=== PATIENT | female | born 1980 | race Caucasian/White ===

== ENCOUNTER → 2016-11-26 | Outpatient (CLI) | payer MEDICAID | END | disposition home or self-care (01) | LOC: LABWHC1 07:31 | PROVIDERS: ATTEND Clinical Nurse Specialist Women's Health | DX: R53.83 Other fatigue (principal) | CPT/HCPCS: 36415; 82306; 82607; 84436; 84443; 84481; 86376 ==

== ENCOUNTER → 2017-03-19 | Outpatient (CLI) | payer MEDICAID ==
[2017-03-19 08:14] LABS: ALT 28 U/L (9-52); AST 24 U/L (14-36); Alkaline Phosphatase 57 U/L (38-126); Anion Gap 12 mmol/L; Blood Urea Nitrogen 9 mg/dL (7-17); Calcium 9.3 mg/dL (8.4-10.2); Carbon Dioxide 24 mmol/L (22-30); Chloride 106 mmol/L (98-107); Cholesterol 252 mg/dL (<200); Glucose 97 mg/dL (74-99); HDL Cholesterol 53 mg/dL (40-60); Non-African American GFR(MDRD) >60 (>60 ml/min/1.73 sqM); Potassium 4.2 mmol/L (3.5-5.1); Sodium 142 mmol/L (137-145); Total Bilirubin 0.6 mg/dL (0.2-1.3); Total Protein 7.4 g/dL (6.3-8.2); Triglycerides 141 mg/dL (<150)
== END | disposition home or self-care (01) ==
LOC: LABWHC1 07:05
PROVIDERS: ATTEND Family Medicine
DX: E78.2 Mixed hyperlipidemia (principal); I10 Essential (primary) hypertension
CPT/HCPCS: 36415; 80053; 80061

== ENCOUNTER → 2017-11-27 | Outpatient (CLI) | payer MEDICAID ==
[2017-11-27 13:53] LABS: T4, Free (Free Thyroxine) 1.49 ng/dL (0.78-2.19)
[2017-11-27 19:40] LABS: Thyroid Peroxidase Antibodies 28.7 U/mL (0.0-60.0); Vitamin D 25 Hydroxy 35.1 ng/mL (30.0-100.0)
== END | disposition home or self-care (01) ==
LOC: LABWHC1 12:10
PROVIDERS: ATTEND Clinical Nurse Specialist Women's Health
DX: Z09 Encounter for follow-up examination after completed treatment for conditions other than malignant neoplasm (principal); Z86.39 Personal history of other endocrine, nutritional and metabolic disease
CPT/HCPCS: 36415; 82306; 82607; 84439; 84481; 86376

== ENCOUNTER → 2018-05-04 | Outpatient (CLI) | payer MEDICAID ==
[2018-05-04 08:17] LABS: HCT 37.6 % (34.0-46.0); HGB 12.3 gm/dL (11.4-16.0); MCH 28.6 pg (25.0-35.0); MCHC 32.6 g/dL (31.0-37.0); MCV 87.6 fL (80.0-100.0); Platelet Count 261 k/uL (150-450); RBC 4.29 m/uL (3.80-5.40); RDW 12.2 % (11.5-15.5); WBC 5.7 k/uL (3.8-10.6)
[2018-05-04 08:41] LABS: Appearance,Urine Clear (Clear); Bilirubin,Urine Negative (Negative); Blood,Urine Negative (Negative); Color,Urine Yellow; Glucose,Urine (UA) Negative (Negative); Ketones,Urine Negative (Negative); Leukocyte Esterase,Urine Trace (Negative); Mucus,Urine Rare /hpf; Nitrite,Urine Negative (Negative); PH, Urine 5.5 (5.0-8.0); Protein,Urine Negative (Negative); Specific Gravity,Urine 1.017 (1.001-1.035); Squamous Epithelial Cell,Urine 5 /hpf (0-4); Urobilinogen,Urine <2.0 mg/dL (<2.0); WBC,Urine 2 /hpf (0-5)
[2018-05-04 08:44] LABS: ALT 35 U/L (9-52); AST 22 U/L (14-36); Albumin 4.2 g/dL (3.5-5.0); Alkaline Phosphatase 53 U/L (38-126); Anion Gap 8 mmol/L; Blood Urea Nitrogen 10 mg/dL (7-17); Calcium 9.2 mg/dL (8.4-10.2); Carbon Dioxide 24 mmol/L (22-30); Chloride 107 mmol/L (98-107); Cholesterol 248 mg/dL (<200); Glucose 99 mg/dL (74-99); HDL Cholesterol 51 mg/dL (40-60); LDL Cholesterol,Calculated 164 mg/dL (0-99); Potassium 4.3 mmol/L (3.5-5.1); Sodium 139 mmol/L (137-145); Total Bilirubin 0.4 mg/dL (0.2-1.3); Total Protein 6.8 g/dL (6.3-8.2); Triglycerides 165 mg/dL (<150)
== END | disposition home or self-care (01) ==
LOC: LABWHC1 07:29
PROVIDERS: ATTEND Family Medicine
DX: Z00.00 Encounter for general adult medical examination without abnormal findings (principal)
CPT/HCPCS: 36415; 80053; 80061; 81001; 85027

== ENCOUNTER → 2018-11-01 | Outpatient (CLI) | payer MEDICAID ==
[2018-11-01 11:03] LABS: HCT 35.5 % (34.0-46.0); HGB 11.7 gm/dL (11.4-16.0); MCH 28.9 pg (25.0-35.0); MCHC 32.8 g/dL (31.0-37.0); MCV 88.3 fL (80.0-100.0); Mean Platelet Volume 6.3; Platelet Count 293 k/uL (150-450); RBC 4.03 m/uL (3.80-5.40); RDW 12.7 % (11.5-15.5); WBC 5.4 k/uL (3.8-10.6)
[2018-11-01 11:31] LABS: Appearance,Urine Clear (Clear); Bilirubin,Urine Negative (Negative); Blood,Urine Negative (Negative); Color,Urine Light Yellow; Glucose,Urine (UA) Negative (Negative); Ketones,Urine Negative (Negative); Leukocyte Esterase,Urine Negative (Negative); Nitrite,Urine Negative (Negative); Protein,Urine Negative (Negative); Specific Gravity,Urine 1.003 (1.001-1.035); Urobilinogen,Urine <2.0 mg/dL (<2.0)
[2018-11-01 17:05] LABS: Albumin 4.5 g/dL (3.80-4.90); Albumin/Globulin Ratio 2.25 (1.20-2.10); Anion Gap 7.3 mmol/L (4.00-12.00); Calcium 9.2 mg/dL (8.7-10.3); Carbon Dioxide 27.7 mmol/L (21.6-31.8); LDL Cholesterol,Calculated 168.4 mg/dL (0.0-131.0); Potassium 4.4 mmol/L (3.5-5.5); Total Bilirubin 0.4 mg/dL (0.3-1.2); Total Protein 6.5 g/dL (6.2-8.2); VLDL Calculation 23.6 mg/dL (5.00-40.00)
== END ==
LOC: LABWHC1 09:47
PROVIDERS: ATTEND Family Medicine
DX: Z00.00 Encounter for general adult medical examination without abnormal findings (principal)
CPT/HCPCS: 36415; 80053; 80061; 81003; 85027

== ENCOUNTER → 2019-05-17 | Outpatient (CLI) | payer MEDICAID ==
[2019-05-17 07:46] LABS: Amorphous Sediment,Urine Rare /hpf; Appearance,Urine Cloudy (Clear); Bacteria,Urine Rare /hpf; Bilirubin,Urine Negative (Negative); Blood,Urine Small (Negative); Color,Urine Yellow; Glucose,Urine (UA) Negative (Negative); Ketones,Urine Negative (Negative); Leukocyte Esterase,Urine Large (Negative); Mucus,Urine Rare /hpf; Nitrite,Urine Negative (Negative); PH, Urine 6.5 (5.0-8.0); Protein,Urine Negative (Negative); RBC,Urine 4 /hpf (0-5); Squamous Epithelial Cell,Urine 7 /hpf (0-4); Urobilinogen,Urine <2.0 mg/dL (<2.0); WBC,Urine 23 /hpf (0-5)
[2019-05-17 08:02] LABS: HCT 37.2 % (34.0-46.0); HGB 12.4 gm/dL (11.4-16.0); MCH 28.9 pg (25.0-35.0); MCHC 33.2 g/dL (31.0-37.0); MCV 87.1 fL (80.0-100.0); Platelet Count 301 k/uL (150-450); RBC 4.28 m/uL (3.80-5.40); RDW 12.8 % (11.5-15.5); WBC 6.6 k/uL (3.8-10.6)
[2019-05-17 11:35] LABS: African American GFR (CKD) 107.6 (60.0-200.0); Albumin 4.4 g/dL (3.80-4.90); Albumin/Globulin Ratio 2.32 (1.60-3.17); Anion Gap 17.8 mmol/L (4.00-12.00); Calcium 9.3 mg/dL (8.7-10.3); Carbon Dioxide 25.2 mmol/L (21.6-31.8); Globulin 1.9 g/dL (1.6-3.3); LDL Cholesterol,Calculated 141.6 mg/dL (0.0-131.0); Potassium 4.1 mmol/L (3.5-5.5); Total Bilirubin 0.4 mg/dL (0.2-1.2); Total Protein 6.3 g/dL (6.2-8.2); VLDL Calculation 26.4 mg/dL (5.00-40.00)
== END | disposition home or self-care (01) ==
LOC: LABWHC1 07:13
PROVIDERS: ATTEND Family Medicine
DX: Z00.00 Encounter for general adult medical examination without abnormal findings (principal)
CPT/HCPCS: 36415; 80053; 80061; 81001; 85027

== ENCOUNTER → 2019-05-19 | Outpatient (CLI) | payer MEDICAID ==
[2019-05-19 23:43] LABS: African American GFR (CKD) 107.6 (60.0-200.0); Anion Gap 11.6 mmol/L (4.00-12.00); BUN/Creat Ratio 13.75 Ratio (12.00-20.00); Calcium 10.2 mg/dL (8.7-10.3); Carbon Dioxide 23.4 mmol/L (21.6-31.8); Non-African American GFR(CKD) 92.9 (60.0-200.0)
== END | disposition home or self-care (01) ==
LOC: LABWHC1 17:27
PROVIDERS: ATTEND Family Medicine
DX: E87.0 Hyperosmolality and hypernatremia (principal)
CPT/HCPCS: 36415; 80048; 86038

== ENCOUNTER → 2019-11-21 | Outpatient (CLI) | payer MEDICAID ==
[2019-11-21 08:29] LABS: HGB 12.6 gm/dL (11.4-16.0); MCH 28.1 pg (25.0-35.0); MCHC 32.4 g/dL (31.0-37.0); MCV 86.7 fL (80.0-100.0); Mean Platelet Volume 7.3; Platelet Count 285 k/uL (150-450); RDW 11.5 % (11.5-15.5); WBC 5.7 k/uL (3.8-10.6)
[2019-11-21 17:05] LABS: African American GFR (CKD) 125.6 (60.0-200.0); Albumin 4.3 g/dL (3.80-4.90); Albumin/Globulin Ratio 2.26 (1.60-3.17); Anion Gap 8.7 mmol/L (4.00-12.00); BUN/Creat Ratio 12.86 Ratio (12.00-20.00); Calcium 9.4 mg/dL (8.7-10.3); Carbon Dioxide 24.3 mmol/L (21.6-31.8); Chol/HDL Ratio 4.27; Globulin 1.9 g/dL (1.6-3.3); LDL Cholesterol,Calculated 124.6 mg/dL (0.0-131.0); Non-African American GFR(CKD) 108.4 (60.0-200.0); Potassium 4.4 mmol/L (3.5-5.5); Total Bilirubin 0.5 mg/dL (0.2-1.2); Total Protein 6.2 g/dL (6.2-8.2); VLDL Calculation 22.4 mg/dL (5.00-40.00)
== END | disposition home or self-care (01) ==
LOC: LABWHC1 07:08
PROVIDERS: ATTEND Family Medicine
DX: E78.2 Mixed hyperlipidemia (principal); R53.81 Other malaise; I10 Essential (primary) hypertension
CPT/HCPCS: 36415; 80053; 80061; 85027

== ENCOUNTER → 2020-06-11 | Outpatient (CLI) | payer MEDICAID ==
[2020-06-11 07:44] LABS: HGB 12.6 gm/dL (11.4-16.0); MCH 29.4 pg (25.0-35.0); MCHC 33.1 g/dL (31.0-37.0); MCV 88.8 fL (80.0-100.0); Mean Platelet Volume 7.3; Platelet Count 256 k/uL (150-450); RBC 4.28 m/uL (3.80-5.40); RDW 12.3 % (11.5-15.5); WBC 7.8 k/uL (3.8-10.6)
[2020-06-11 10:31] LABS: African American GFR (CKD) 125.6 (60.0-200.0); Albumin 4.4 g/dL (3.80-4.90); Albumin/Globulin Ratio 1.83 (1.60-3.17); Anion Gap 8.3 mmol/L (4.00-12.00); BUN/Creat Ratio 17.14 Ratio (12.00-20.00); Carbon Dioxide 23.7 mmol/L (21.6-31.8); Chol/HDL Ratio 4.6; Globulin 2.4 g/dL (1.6-3.3); LDL Cholesterol,Calculated 163.2 mg/dL (0.0-131.0); Non-African American GFR(CKD) 108.4 (60.0-200.0); Total Bilirubin 0.5 mg/dL (0.2-1.2); Total Protein 6.8 g/dL (6.2-8.2); VLDL Calculation 27.8 mg/dL (5.00-40.00)
== END | disposition home or self-care (01) ==
LOC: LABWHC1 07:17
PROVIDERS: ATTEND Family Medicine
DX: Z00.00 Encounter for general adult medical examination without abnormal findings (principal)
CPT/HCPCS: 36415; 80053; 80061; 85027

== ENCOUNTER → 2020-06-22 | Outpatient (CLI) | payer MEDICAID ==
--- NOTE | 2020-06-26 13:52 | MM ---
Reason for exam: screening (asymptomatic). Last mammogram was performed 6 years and 5 months ago. History: Family history of breast cancer in maternal grandmother at age 65. Took hormonal contraceptives beginning at age 18. Physical Findings: A clinical breast exam by your physician is recommended on an annual basis and results should be correlated with mammographic findings. MG 3D Screening Mammo W/Cad Bilateral CC and MLO view(s) were taken. Prior study comparison: February 01, 2014, CAD bilateral diagnostic mammogram. The breast tissue is heterogeneously dense. This may lower the sensitivity of mammography. No significant changes when compared with prior studies. ASSESSMENT: Benign, BI-RAD 2 RECOMMENDATION: Routine screening mammogram of both breasts in 1 year.
== END | disposition home or self-care (01) ==
LOC: RADMAMWWP 09:03
PROVIDERS: ATTEND Obstetrics & Gynecology
DX: Z12.31 Encounter for screening mammogram for malignant neoplasm of breast (principal)
CPT/HCPCS: 77063; 77067

== ENCOUNTER → 2020-12-27 | Outpatient (CLI) | payer MEDICAID ==
[2020-12-27 11:23] LABS: African American GFR (CKD) 106.1 (60.0-200.0); Albumin 4.7 g/dL (3.80-4.90); Albumin/Globulin Ratio 2.14 (1.60-3.17); Anion Gap 10.7 mmol/L (4.00-12.00); Calcium 9.2 mg/dL (8.7-10.3); Carbon Dioxide 22.3 mmol/L (21.6-31.8); Chol/HDL Ratio 5.42; Globulin 2.2 g/dL (1.6-3.3); LDL Cholesterol,Calculated 206.8 mg/dL (0.0-131.0); Non-African American GFR(CKD) 91.6 (60.0-200.0); Potassium 4.2 mmol/L (3.5-5.5); Total Bilirubin 0.4 mg/dL (0.2-1.2); Total Protein 6.9 g/dL (6.2-8.2); VLDL Calculation 23.2 mg/dL (5.00-40.00)
[2020-12-27 11:33] LABS: HCT 38.4 % (37.2-46.3); HGB 12.6 g/dL (12.0-15.0); MCH 29.4 pg (27.0-32.0); MCHC 32.8 g/dL (32.0-37.0); MCV 89.5 fL (80.0-97.0); Mean Platelet Volume 10.6 fL (9.5-12.2); Platelet Count 304 X 10*3/uL (140-440); RBC 4.29 X 10*6/uL (4.10-5.20); RDW 12.3 % (11.5-14.5); WBC 7.08 X 10*3/uL (4.50-10.00)
== END | disposition home or self-care (01) ==
LOC: LABWHC1 06:52
PROVIDERS: ATTEND Family Medicine
DX: E78.2 Mixed hyperlipidemia (principal); I10 Essential (primary) hypertension
CPT/HCPCS: 36415; 80053; 80061; 85027

== ENCOUNTER → 2021-07-25 | Outpatient (CLI) | payer MEDICAID ==
[2021-07-25 11:10] LABS: HCT 37.2 % (37.2-46.3); HGB 12.3 g/dL (12.0-15.0); MCH 29.6 pg (27.0-32.0); MCHC 33.1 g/dL (32.0-37.0); MCV 89.4 fL (80.0-97.0); Mean Platelet Volume 10.2 fL (9.5-12.2); Platelet Count 317 X 10*3/uL (140-440); RBC 4.16 X 10*6/uL (4.10-5.20); RDW 12.3 % (11.5-14.5); WBC 6.06 X 10*3/uL (4.50-10.00)
[2021-07-25 13:34] LABS: African American GFR (CKD) 124.9 (60.0-200.0); Albumin 4.5 g/dL (3.8-4.9); Albumin/Globulin Ratio 1.79 (1.60-3.17); Anion Gap 14.5 mmol/L (4.00-12.00); BUN/Creat Ratio 11.33 Ratio (12.00-20.00); Blood Urea Nitrogen 7.9 mg/dL (9.0-27.0); Calcium 9.3 mg/dL (8.7-10.3); Carbon Dioxide 20.2 mmol/L (21.6-31.8); Chol/HDL Ratio 6.14 Ratio; Globulin 2.5 g/dL (1.6-3.3); HDL Cholesterol 47.2 mg/dL (40.00-60.00); LDL Cholesterol,Calculated 210.2 mg/dL (0.0-131.0); Non-African American GFR(CKD) 107.8 (60.0-200.0); Total Bilirubin 0.2 mg/dL (0.30-1.20); VLDL Calculation 32.6 mg/dL (5.00-40.00)
== END | disposition home or self-care (01) ==
LOC: LABWHC1 07:02
PROVIDERS: ATTEND Family Medicine
DX: I10 Essential (primary) hypertension (principal); E78.2 Mixed hyperlipidemia
CPT/HCPCS: 36415; 80053; 80061; 85027

== ENCOUNTER → 2021-10-18 | Outpatient (CLI) | payer MEDICAID ==
--- NOTE | 2021-10-21 10:01 | MM ---
Reason for exam: screening (asymptomatic). Last mammogram was performed 1 year and 4 months ago. History: Family history of breast cancer in maternal grandmother at age 65. Took hormonal contraceptives beginning at age 18. Physical Findings: A clinical breast exam by your physician is recommended on an annual basis and results should be correlated with mammographic findings. MG 3D Screening Mammo W/Cad Bilateral CC and MLO view(s) were taken. Prior study comparison: June 22, 2020, bilateral MG 3d screening mammo w/cad. February 01, 2014, CAD bilateral diagnostic mammogram. The breast tissue is heterogeneously dense. This may lower the sensitivity of mammography. There is no discrete abnormality. ASSESSMENT: Negative, BI-RAD 1 RECOMMENDATION: Routine screening mammogram of both breasts in 1 year.
== END | disposition home or self-care (01) ==
LOC: RADMAMWWP 07:06
PROVIDERS: ATTEND Obstetrics & Gynecology
DX: Z12.31 Encounter for screening mammogram for malignant neoplasm of breast (principal); Z80.3 Family history of malignant neoplasm of breast
CPT/HCPCS: 77063; 77067

== ENCOUNTER → 2022-09-18 | Outpatient (CLI) | payer MEDICAID ==
[2022-09-18 10:36] LABS: HCT 37.1 % (37.2-46.3); HGB 12.2 g/dL (12.0-15.0); MCH 29.1 pg (27.0-32.0); MCHC 32.9 g/dL (32.0-37.0); MCV 88.5 fL (80.0-97.0); Mean Platelet Volume 10.3 fL (9.5-12.2); NRBC Per 100 WBC 0 /100 WBCS (0.0-0.0); Platelet Count 323 X 10*3/uL (140-440); RBC 4.19 X 10*6/uL (4.10-5.20); RDW 12.3 % (11.5-14.5)
[2022-09-18 10:41] LABS: ALT 32 U/L (8-44); AST 31 U/L (13-35); African American GFR (CKD) 111.9 (60.0-200.0); Albumin 4.4 g/dL (3.8-4.9); Albumin/Globulin Ratio 1.63 (1.60-3.17); Alkaline Phosphatase 65 U/L (41-126); BUN/Creat Ratio 13.21 Ratio (12.00-20.00); Calcium 9.2 mg/dL (8.7-10.3); Chloride 103 mmol/L (96-109); Chol/HDL Ratio 6.02 Ratio; Globulin 2.7 g/dL (1.6-3.3); Glucose 100 mg/dL (70-110); LDL Cholesterol,Calculated 202.7 mg/dL (0.0-131.0); Non-African American GFR(CKD) 96.5 (60.0-200.0); Potassium 4.2 mmol/L (3.5-5.5); Sodium 138 mmol/L (135-145); Total Protein 7.1 g/dL (6.2-8.2)
== END | disposition home or self-care (01) ==
LOC: LABWHC1 07:02
PROVIDERS: ATTEND Family Medicine
DX: Z00.01 Encounter for general adult medical examination with abnormal findings (principal)
CPT/HCPCS: 36415; 80053; 80061; 85027

== ENCOUNTER → 2022-11-03 | Outpatient (CLI) | payer MEDICAID ==
[2022-11-03 11:47] LABS: ALT 30 U/L (8-44); AST 23 U/L (13-35); Chol/HDL Ratio 4.38 Ratio; LDL Cholesterol,Calculated 120.2 mg/dL (0.0-131.0)
== END ==
LOC: LABWHC1 07:06
PROVIDERS: ATTEND Family Medicine
DX: E78.2 Mixed hyperlipidemia (principal)
CPT/HCPCS: 36415; 80061; 84450; 84460

== ENCOUNTER → 2023-01-01 | Outpatient (CLI) | payer MEDICAID ==
--- NOTE | 2023-01-01 08:26 | MM ---
Reason for Exam: Screening (asymptomatic). Last mammogram was performed 1 year(s) and 3 month(s) ago. Patient History: Menarche at age 10. First Full-Term at age 26. Hormonal Contraceptives, from age 18 until age 25. Maternal grandmother had breast cancer, age 65. Risk Values: Elizabeth 5 year model risk: 0.9%. NCI Lifetime model risk: 11.8%. Prior Study Comparison: 02/01/2014 Bilateral Diagnostic Mammogram, [facility]. 06/22/2020 Bilateral Screening Mammogram, [facility]. 10/18/2021 Bilateral Screening Mammogram, [facility]. Tissue Density: The breast tissue is heterogeneously dense. This may lower the sensitivity of mammography. Findings: Analyzed By CAD. There is no suspicious group of microcalcifications or new suspicious mass in either breast. Overall Assessment: Negative, BI-RAD 1 Management: Screening Mammogram of both breasts in 1 year. A clinical breast exam by your physician is recommended on an annual basis and results should be correlated with mammographic findings. [facility] will attempt to contact patient to return for supplemental views and ultrasound if indicated. Electronically signed and approved by: Mandeep James DO
--- NOTE | 2023-01-01 09:04 | US ---
EXAMINATION TYPE: US transvaginal DATE OF EXAM: 01/01/2023 COMPARISON: NONE CLINICAL INDICATION:Female, 42 years old with history of N93.9 ABN UTERINE BLEEDING,N92.0,R14.0; TECHNIQUE: . Transvaginal sonographic images were medically necessary to better assess the following anatomy: Endometrium Date of LMP: 12-19-22 EXAM MEASUREMENTS: Uterus: 7.8 x 6.0 x 2.4 cm Endometrial Stripe: 0.8 cm Right Ovary: 2.4 x 1.6 x 1.7 cm Left Ovary: 2.1 x 1.8 x 1.9 cm 1. Uterus: Anteverted wnl 2. Endometrium: wnl 3. Right Ovary: wnl, adjacent to endometrium is a c-shaped hypoechoic tubular structure, this sara ears as separate from ovary 4. Left Ovary: wnl 5. Bilateral Adnexa: wnl 6. Posterior cul-de-sac: wnl IMPRESSION: 1. Irregularity of the myometrium adjacent to the endometrium most pronounced in the fundus further evaluation with MRI with IV contrast could provide further characterization. 2. Endometrium is within normal limits for patient's age.
== END | disposition home or self-care (01) ==
LOC: RADMAMWWP 07:14
PROVIDERS: ATTEND Obstetrics & Gynecology
DX: Z12.31 Encounter for screening mammogram for malignant neoplasm of breast (principal); N92.0 Excessive and frequent menstruation with regular cycle; N93.9 Abnormal uterine and vaginal bleeding, unspecified; Z80.3 Family history of malignant neoplasm of breast
CPT/HCPCS: 76830; 77063; 77067

== ENCOUNTER → 2023-01-17 | Outpatient (CLI) | payer MEDICAID ==
[2023-01-17 11:15] LABS: Basophils # (A) 0.05 X 10*3/uL (0.00-0.10); Basophils % (A) 0.8 %; Eosinophils # (A) 0.35 X 10*3/uL (0.04-0.35); Eosinophils % (A) 5.3 %; HCT 38.9 % (37.2-46.3); HGB 12.2 g/dL (12.0-15.0); Immature Grans, Automated 0.2 %; Lymphocytes # (A) 1.69 X 10*3/uL (0.90-5.00); Lymphocytes % (A) 25.5 %; MCH 27.9 pg (27.0-32.0); MCHC 31.4 g/dL (32.0-37.0); Mean Platelet Volume 10.4 fL (9.5-12.2); Monocytes # (A) 0.63 X 10*3/uL (0.20-1.00); Monocytes % (A) 9.5 %; NRBC Per 100 WBC 0 /100 WBCS (0.0-0.0); Neutrophils # (A) 3.91 X 10*3/uL (1.80-7.70); Neutrophils % (A) 58.7 %; Platelet Count 312 X 10*3/uL (140-440); RBC 4.37 X 10*6/uL (4.10-5.20); RDW 12.2 % (11.5-14.5); WBC 6.64 X 10*3/uL (4.50-10.00)
== END | disposition home or self-care (01) ==
LOC: LABPAT 08:07
PROVIDERS: ATTEND Obstetrics & Gynecology
DX: Z01.812 Encounter for preprocedural laboratory examination (principal); N94.6 Dysmenorrhea, unspecified; I10 Essential (primary) hypertension; N92.0 Excessive and frequent menstruation with regular cycle
CPT/HCPCS: 85025; 93005

== ENCOUNTER 2023-02-02 07:06 | Day surgery (SDC) | payer MEDICAID ==
[~2023-02-02 07:06] MED LIST: Pre Op ABX Message 1 EACH MISC MISCELLANE ONE
[2023-02-02] MEDS ORDERED: SCOPOLAMINE 1 MG/72 HR PATCH TRANSDERM ONE (07:38)
[2023-02-02] MEDS ORDERED: HYDROmorphone 0.5 MG/0.5 ML SYRINGE IVP PRN (07:38)
[2023-02-02] MEDS ORDERED: LACTATED RINGERS 1,000 ML IV SCH (07:38)
[2023-02-02] MEDS ORDERED: DEXAMETHASONE SOD PHOSPHATE 4 MG/ML 1 ML VIAL IV ONE (07:38)
[2023-02-02] MEDS ORDERED: ONDANSETRON 4 MG/2 ML VIAL IVP ONE (07:38)
[2023-02-02] MEDS ORDERED: MIDAZOLAM 2 MG/2 ML VIAL IV PRN (07:38)
[2023-02-02] MEDS ORDERED: KETOROLAC 15 MG/ML 1 ML VIAL ONE (08:01)
[2023-02-02] MEDS ORDERED: PROPOFOL 10 MG/ML 20 ML VIAL IV ONE (08:01)
[2023-02-02] MEDS ORDERED: SUCCINYLCHOLINE CHLORIDE 200 MG/10 ML VIAL IV ONE (08:01)
[2023-02-02] MEDS ORDERED: MIDAZOLAM 2 MG/2 ML VIAL ONE (08:01)
[2023-02-02] MEDS ORDERED: fentaNYL (PF) 50 MCG/ML 2 ML AMP ONE (08:01)
[2023-02-02] MEDS ORDERED: LIDOCAINE 2% INJ 20 MG/ML (2 ML VIAL) ONE (08:01)
--- NOTE | 2023-02-02 08:42 | P.OP ---
Date of Procedure: 02/02/23 Preoperative Diagnosis: Menorrhagia, dysmenorrhea Postoperative Diagnosis: Same, essentially negative-appearing endometrial cavity Procedure(s) Performed: Hysteroscopy, NovaSure endometrial ablation Anesthesia: TREVORA Surgeon: Rosa Maria Hercules Estimated Blood Loss (ml): 10 IV fluids (ml): 300 Urine output (ml): 200 Pathology: none sent Condition: stable Disposition: PACU Operative Findings: Essentially negative. Endometrial cavity with no obvious polyps, fibroids, septa, or defects. Description of Procedure: Patient is brought to the operating suite where a general anesthetic is administered without difficulty. She's placed in the dorsal lithotomy position. The cervix, vagina, perineal bodies are all prepped and draped in the usual sterile fashion. The appropriate timeout is performed to assure proper patient and procedural identification. Catheter is used to drain the bladder for approximately 200 mL of clear yellow urine. Examination under anesthesia reveals a small retroverted uterus. W eighted speculum was placed into the vagina and the anterior lip of the cervix is grasped with an Allis clamp. Uterus sounds to a depth of 9 cm in the retroverted position. Cervix is gently and systematically dilated using Hanks dilators. The hysteroscope was placed and the cavity is infused with sterile saline. There is an abundant amount of proliferative-type appearing tissue, no obvious polyps, fibroids, or defects. Hysteroscope is removed. The wand is then placed and seated properly. Uterine length of 6.0 cm, width 2.9 cm is calibrated. The machine is properly enabled. For 37 seconds and a power of 96 W the procedure is carried out. When the machine turns off the wand is reduced and removed. Hysteroscope was once again placed and the cavity appears to be uniformly blanched. All sponge needle and instrument counts are correct. Patient is brought back to the recovery room in very good condition with stable vital signs including blood pressure 108/65, pulse 75, 99% O2 sat uration. Toradol is given prior to leaving the operative room. Patient will follow-up with me in the office in 2 weeks.
[2023-02-02 08:46] VITALS: TEMP 97.6
[2023-02-02 09:18] VITALS: RESP 16
[2023-02-02 09:48] VITALS: BP 118/71; PULSE 81
== END 2023-02-02 10:19 | disposition home or self-care (01) ==
LOC: OR 07:06
PROVIDERS: ATTEND Obstetrics & Gynecology
DX: N94.6 Dysmenorrhea, unspecified (principal); N92.0 Excessive and frequent menstruation with regular cycle; Q51.3 Bicornate uterus; I10 Essential (primary) hypertension; E78.5 Hyperlipidemia, unspecified; K21.9 Gastro-esophageal reflux disease without esophagitis; E06.3 Autoimmune thyroiditis; E55.9 Vitamin D deficiency, unspecified; Z87.891 Personal history of nicotine dependence; F10.20 Alcohol dependence, uncomplicated; Z79.899 Other long term (current) drug therapy; Z88.8 Allergy status to other drugs, medicaments and biological substances; Z98.51 Tubal ligation status; Z82.49 Family history of ischemic heart disease and other diseases of the circulatory system; Z83.3 Family history of diabetes mellitus; Z83.49 Family history of other endocrine, nutritional and metabolic diseases
CPT/HCPCS: 58563; 81025; J2250; J0330; J1100; J2405; J3010; J1885; J2704; J1170; J2001

== ENCOUNTER → 2023-03-10 | Outpatient (CLI) | payer MEDICAID ==
[2023-03-10 10:56] LABS: HCT 38.2 % (37.2-46.3); HGB 12.1 g/dL (12.0-15.0); MCH 28.1 pg (27.0-32.0); MCHC 31.7 g/dL (32.0-37.0); MCV 88.8 fL (80.0-97.0); Mean Platelet Volume 10.6 fL (9.5-12.2); NRBC Per 100 WBC 0 /100 WBCS (0.0-0.0); Platelet Count 272 X 10*3/uL (140-440); RDW 12.7 % (11.5-14.5); WBC 7.45 X 10*3/uL (4.50-10.00)
[2023-03-10 11:04] LABS: ALT 21 U/L (8-44); AST 19 U/L (13-35); African American GFR (CKD) 129.4 (60.0-200.0); Albumin 4.3 g/dL (3.8-4.9); Albumin/Globulin Ratio 1.72 (1.60-3.17); Alkaline Phosphatase 71 U/L (41-126); BUN/Creat Ratio 15.33 Ratio (12.00-20.00); Blood Urea Nitrogen 9.2 mg/dL (9.0-27.0); Calcium 8.9 mg/dL (8.7-10.3); Carbon Dioxide 23.1 mmol/L (20.0-27.5); Chloride 103 mmol/L (96-109); Chol/HDL Ratio 4.77 Ratio; Globulin 2.5 g/dL (1.6-3.3); Glucose 97 mg/dL (70-110); LDL Cholesterol,Calculated 133.7 mg/dL (0.0-131.0); Non-African American GFR(CKD) 111.6 (60.0-200.0); Potassium 4.1 mmol/L (3.5-5.5); Sodium 137 mmol/L (135-145); Total Bilirubin <0.15 mg/dL (0.30-1.20); Total Protein 6.8 g/dL (6.2-8.2)
== END | disposition home or self-care (01) ==
LOC: LABWHC1 06:58
PROVIDERS: ATTEND Family Medicine
DX: E78.2 Mixed hyperlipidemia (principal); R53.81 Other malaise; I10 Essential (primary) hypertension
CPT/HCPCS: 36415; 80053; 80061; 85027

== ENCOUNTER 2023-07-25 10:08 | Emergency (ER) | payer MEDICAID ==
[2023-07-25 10:26] VITALS: TEMP 98.1
[2023-07-25] MEDS ORDERED: methylPREDNISolone SOD SUCCI 125 MG/2 ML VIAL IM ONE (10:41)
--- NOTE | 2023-07-25 10:58 | ED ---
Lower Extremity Injury HPI - General Chief Complaint: Extremity Injury, Lower Stated Complaint: Right foot injury Time Seen by Provider: 07/25/23 10:23 Source: patient, RN notes reviewed Mode of arrival: ambulatory Limitations: no limitations - History of Present Illness Initial Comments: This is a 42-year-old female who presents to the emergency department for a right foot injury. States that she was walking on the sidewalk last night, when she tripped and rolled her right ankle. She has since developed bruising and swelling to this area. She is still able to walk, but states that it is very painful. She's been applying ice but not taking any pain medication. Additionally, states that she's had problems with nasal drainage and congestion over the last week. She also has severe sinus tenderness and has been applying ice packs to her face as a result. She inquired about steroids to help with her symptoms. Denies any chest pain or shortness of breath. MD Complaint: ankle injury, foot injury - Related Data Home Medications Medication Instructions Recorded Confirmed lisinopriL [Prinivil] 10 mg PO HS 05/30/15 02/02/23 Loratadine [Claritin] 10 mg PO HS 01/27/23 02/02/23 Pravastatin Sodium [Pravachol] 20 mg PO HS 01/27/23 02/02/23 Unk Fish Oil 1 tab PO DAILY 01/27/23 02/02/23 Unk Mucinex 1 tab PO DIRECTED PRN 01/27/23 02/02/23 Unk Probiotic 1 tab PO DAILY 01/27/23 02/02/23 Unk Vitamin Adek 1 tab PO DAILY 01/27/23 02/02/23 Previous Rx's Medication Instructions Recorded predniSONE 50 mg PO DAILY 5 Days #5 tab 07/25/23 Allergies Allergy/AdvReac Type Severity Reaction Status Date / Time No Known Allergies Allergy Verified 07/25/23 10:21 Review of Systems ROS Statement: Those systems with pertinent positive or pertinent negative responses have been documented in the HPI. ROS Other: All systems not noted in ROS Statement are negative. Past Medical History Past Medical History: Hypertension Additional Past Medical History / Comment(s): seasonal allergies. heavy menstrual bleeding. History of Any Multi-Drug Resistant Organisms: None Reported Past Surgical History: Tubal Ligation Past Anesthesia/Blood Transfusion Reactions: No Reported Reaction Past Psychological History: No Psychological Hx Reported Smoking Status: Former smoker Past Alcohol Use History: Occasional Past Drug Use History: None Reported - Past Family History Mother Additional Family Medical History / Comment(s): pacemaker and defib General Exam Limitations: no limitations General appearance: alert, in no apparent distress Head exam: Present: atraumatic, normocephalic, normal inspection ENT exam: Present: normal oropharynx, mucous membranes moist, TM's normal bilaterally, normal external ear exam, other (Maxillary sinus tenderness) Respiratory exam: Present: normal lung sounds bilaterally. Absent: respiratory distress, wheezes, rales, rhonchi, stridor Cardiovascular Exam: Present: regular rate, normal rhythm, normal heart sounds. Absent: systolic murmur, diastolic murmur, rubs, gallop, clicks Extremities exam: Present: other (Swelling, ecchymosis, and tenderness to the dorsal aspect of the right foot. Full range of motion. 2+ DP and PT pulses. Capillary refill less than 1 second.) Neurological exam: Present: alert, oriented X3, CN II-XII intact Psychiatric exam: Present: normal affect, normal mood Course Vital Signs 07/25/23 07/25/23 10:18 12:00 Temperature 98.1 F Pulse Rate 83 75 Respiratory 20 18 Rate Blood Pressure 141/83 150/83 O2 Sat by Pulse 97 97 Oximetry Procedures - Orthopedic Splinting/Casting Injury #1 Side: right Lower Extremity Injury Location: foot Lower Extremity Immobilizer: posterior splint Other Orthopedic Equipment: crutches Medical Decision Making - Medical Decision Making This is a 42-year-old female who presents to the emergency department for right foot and ankle pain. Was pt. sent in by a medical professional or institution? @ -No Did you speak to anyone other than the patient for history? @ -No Did you review nursing and triage notes? @ -Yes, and I agree, it is accurate with regards to the patient's symptoms. Were old charts reviewed? @ -No Differential Diagnosis? @ -Differential Foot/Ankle Injury: Fracture, dislocation, contusion, this is not meant to be an all-inclusive list. EKG interpreted by me (3pts min.)? @ -Not obtained X-rays interpreted by me (1pt min.)? @ -X-ray of the right foot obtained. My interpretation identifies a right fifth metatarsal fracture. CT interpreted by me (1pt min.)? @ -Not obtained U/S interpreted by me (1pt. min.)? @ -Not obtained What testing was considered but not performed? (CT, X-rays, U/S, labs)? Why? @ -None What meds were considered but not given? Why? @ -None Did you discuss the management of the patient with other professionals? @ -No Did you reconcile home meds? @ -No Was smoking cessation discussed for >3mins.? @ -No Was critical care preformed (if so, how long)? @ -No Were there social determinants of health that impacted care today? How? (Homelessness, low income, unemployed, alcoholism, drug addiction, transportation, low edu. Level, literacy, decrease access to med. care, longterm, rehab)? @ -No Was there de-escalation of care discussed even if they declined? (Discuss DNR or withdrawal of care, Hospice)? @ -No What co-morbidities impacted this encounter? (DM, HTN, Smoking, COPD, CAD, Cancer, CVA, Hep., AIDS, mental health diagnosis, sleep apnea, morbid obesity)? @ -None Was patient admitted / discharged? @ -Discharged. X-ray of the right foot obtained revealing an acute fracture of the right fifth metatarsal base with intra-articular extension into the cuboid. I did offer cepheid 4-plex testing for her upper respiratory symptoms, however the patient declined. I was agreeable to giving her a prescription for prednisone for her URI symptoms. Posterior splint was applied to the right lower extremity and she was given a pair of crutches. Advised she alternate with ibuprofen and Tylenol as needed for pain relief. She was given information for orthopedic follow-up. Advised she contact them first thing Thursday morning for follow-up appointment. Undiagnosed new problem with uncertain prognosis? @ -None Drug Therapy requiring intensive monitoring for toxicity (Heparin, Nitro, Insulin, Cardizem)? @ -None Were any procedures done? @ -Posterior splint to the right lower extremity Diagnosis/symptom? @ -Right metatarsal fracture, sinusitis Acute, or Chronic, or Acute on Chronic? @ -Acute Uncomplicated (without systemic symptoms) or Complicated (systemic symptoms)? @ -Uncomplicated Side effects of treatment? @ -None Exacerbation, Progression, or Severe Exacerbation] @ -Not applicable Poses a threat to life or bodily function? @ -Yes, the metatarsal fracture will impact her ability to ambulate. Return precautions reviewed in depth, the patient is instructed to return to the emergency department with any new, worsening, or concerning symptoms. Patient verbalized understanding. This case was discussed in detail with the attending ED physician, Dr. Alvarez. Presentation, findings, and treatment plan discussed in detail as well. - Radiology Data Radiology results: report reviewed, image reviewed Disposition Clinical Impression: Fracture of fifth metatarsal bone of right foot, Sinusitis Disposition: HOME SELF-CARE Instructions (If sedation given, give patient instructions): Sinusitis (ED), Foot Fracture in Adults (ED), Splint Care (ED) Additional Instructions: Return to the emergency department with any new, worsening, or concerning symptoms. Alternate with ibuprofen and Tylenol as needed for pain relief. Take the prednisone daily for 5 days. Contact orthopedics as listed below first thing Thursday morning for a follow-up appointment and reevaluation of the fracture. Prescriptions: predniSONE 50 mg PO DAILY 5 Days #5 tab Is patient prescribed a controlled substance at d/c from ED?: No Referrals: Sha Vidal MD [Primary Care Provider] - 1-2 days Noam Lu MD [Medical Doctor] - 1-2 days
--- NOTE | 2023-07-25 11:01 | XR ---
EXAMINATION TYPE: XR foot complete RT DATE OF EXAM: 07/25/2023 10:53 AM CLINICAL INDICATION:Female, 42 years old with history of Injury; H COMPARISON: None TECHNIQUE: The right foot was examined in the AP, oblique, and lateral projections. FINDINGS/IMPRESSION: Acute fracture of the fifth metatarsal base with intra-articular extension to the cuboid.. There is m inimal displacement. There is associated soft tissue swelling.
[2023-07-25] MEDS ORDERED: ACET/COD 300 MG/30 MG STARTER PACK 6 TAB BTL PO STA (11:35)
[2023-07-25] MEDS ORDERED: IBUPROFEN 600 MG STARTER PACK 4 TAB BTL PO STA (11:36)
[2023-07-25 12:12] VITALS: BP 150/83; PULSE 75; RESP 18
== END 2023-07-25 12:08 | disposition home or self-care (01) ==
LOC: EC 10:08
DX: S92.351A Displaced fracture of fifth metatarsal bone, right foot, initial encounter for closed fracture (principal); J32.9 Chronic sinusitis, unspecified; I10 Essential (primary) hypertension; Z87.891 Personal history of nicotine dependence; Z79.899 Other long term (current) drug therapy; X50.0XXA Overexertion from strenuous movement or load, initial encounter
CPT/HCPCS: 99283; 96372; 29515; 73630; J2930

== ENCOUNTER → 2023-10-31 | Outpatient (CLI) | payer MEDICAID ==
[2023-10-31 13:53] LABS: HCT 38.8 % (37.2-46.3); HGB 12.6 g/dL (12.0-15.0); MCH 28.7 pg (27.0-32.0); MCHC 32.5 g/dL (32.0-37.0); MCV 88.4 FL (80.0-97.0); Mean Platelet Volume 10.3 FL (9.5-12.2); NRBC Per 100 WBC 0 X 10*3/uL (0.00-0.01); Platelet Count 283 X 10*3/uL (140-440); RBC 4.39 X 10*6/uL (4.10-5.20); RDW 12.1 % (11.5-14.5); WBC 6.22 X 10*3/uL (4.50-10.00)
[2023-10-31 14:12] LABS: ALT 28 U/L (8-44); AST 19 U/L (13-35); Albumin 4.5 g/dL (3.8-4.9); Albumin/Globulin Ratio 1.73 Ratio (1.60-3.17); Alkaline Phosphatase 65 U/L (41-126); BUN/Creat Ratio 13.38 Ratio (12.00-20.00); Blood Urea Nitrogen 10.7 mg/dL (9.0-27.0); Calcium 9.4 mg/dL (8.7-10.3); Carbon Dioxide 20.4 mmol/L (21.6-31.8); Chloride 106 mmol/L (96-109); Chol/HDL Ratio 6.73 Ratio; Globulin 2.6 g/dL (1.6-3.3); Glucose 101 mg/dL (70-110); LDL Cholesterol,Calculated 218.4 mg/dL (0.0-131.0); Potassium 4.5 mmol/L (3.5-5.5); Sodium 139 mmol/L (135-145); Total Bilirubin 0.2 mg/dL (0.3-1.2); Total Protein 7.1 g/dL (6.2-8.2)
== END | disposition home or self-care (01) ==
LOC: LABWHC1 09:16
PROVIDERS: ATTEND Family Medicine
DX: Z00.01 Encounter for general adult medical examination with abnormal findings (principal)
CPT/HCPCS: 36415; 80053; 80061; 85027

== ENCOUNTER → 2024-04-22 | Outpatient (CLI) | payer MEDICAID ==
--- NOTE | 2024-04-25 10:16 | MM ---
Reason for Exam: Screening (asymptomatic). Last mammogram was performed 1 year(s) and 4 month(s) ago. Patient History: Menarche at age 10. First Full-Term at age 26. Hormonal Contraceptives, from age 18 until age 25. Maternal grandmother had breast cancer, age 65. Last menstrual period: 04/07/2024 Risk Values: Elizabeth 5 year model risk: 0.9%. NCI Lifetime model risk: 11.7%. Prior Study Comparison: 06/22/2020 Bilateral Screening Mammogram, [facility]. 10/18/2021 Bilateral Screening Mammogram, [facility]. 01/01/2023 Bilateral MG 3D screening mammo w/cad, [facility]. Tissue Density: There are scattered areas of fibroglandular density. Findings: Analyzed By CAD. Right breast: There is no suspicious group of microcalcifications or new suspicious mass. Left breast: Developing asymmetry left breast CC view lateral aspect posterior depth approximately 9.3 cm the nipple slightly inferior/posterior nipple line on MLO view 8.2 cm the nipple. Overall Assessment: Incomplete: need additional imaging evaluation, BI-RAD 0 Management: Diagnostic Mammogram of the left breast. [facility] will attempt to contact patient to return for supplemental views and ultrasound if indicated. Patient should continue monthly self-breast exams. A clinical breast exam by your physician is recommended on an annual basis. This exam should not preclude additional follow-up of suspicious palpable abnormalities. Note on Elizabeth scores and lifetime risk: 1. A Elizabeth score greater than 3% is considered moderate risk. If this is the case, consider specialist referral to assess eligibility for a risk reducing agent. 2. If overall lifetime risk for the development of breast cancer is 20% or higher, the patient may qualify for future screening with alternating mammogram and breast MRI. Electronically signed and approved by: Mandeep James DO
== END | disposition home or self-care (01) ==
LOC: RADMAMWWP 16:27
PROVIDERS: ATTEND Obstetrics & Gynecology
DX: Z12.31 Encounter for screening mammogram for malignant neoplasm of breast (principal); Z80.3 Family history of malignant neoplasm of breast
CPT/HCPCS: 77063; 77067

== ENCOUNTER → 2024-04-28 | Outpatient (CLI) | payer MEDICAID ==
--- NOTE | 2024-04-28 07:44 | MM ---
Reason for Exam: Additional evaluation requested from abnormal screening. Last screening mammogram was performed less than 1 month ago. Patient History: Menarche at age 10. First Full-Term at age 26. Premenopausal. Hormonal Contraceptives, from age 18 until age 25. Maternal grandmother had breast cancer, age 65. Last menstrual period: 04/27/2024 Risk Values: Elizabeth 5 year model risk: 0.9%. NCI Lifetime model risk: 11.7%. Prior Study Comparison: 02/01/2014 Bilateral Diagnostic Mammogram, [facility]. 06/22/2020 Bilateral Screening Mammogram, [facility]. 10/18/2021 Bilateral Screening Mammogram, [facility]. 01/01/2023 Bilateral MG 3D screening mammo w/cad, [facility]. 04/22/2024 Bilateral MG 3D screening mammo w/cad, [facility]. Tissue Density: Left: The breasts are heterogeneously dense, which may obscure small masses. Findings: Analyzed By CAD. There is a persistent slightly ill-defined density lower outer quadrant measuring 1.1 x 2.2 cm in size located 9 cm nipple approximately 4:00 posterior position there is a change from comparison studies. Additional evaluation with ultrasound is recommended. Overall Assessment: Incomplete: need additional imaging evaluation, BI-RAD 0 Management: Diagnostic Breast Ultrasound of the left breast. A negative mammogram report should not preclude additional follow up of suspicious palpable abnormalities. Patient should continue monthly self breast exam. A clinical breast exam by your physician is recommended on an annual basis and results should be correlated with mammographic findings. Note on Elizabeth scores and lifetime risk: 1. A Elizabeth score greater than 3% is considered moderate risk. If this is the case, consider specialist referral to assess eligibility for a risk reducing agent. 2. If overall lifetime risk for the development of breast cancer is 20% or higher, the patient may qualify for future screening with alternating mammogram and breast MRI. Electronically signed and approved by: Brian Stevens D.O. Radiologis
--- NOTE | 2024-04-28 08:08 | USB ---
Reason for Exam: Additional evaluation requested from abnormal screening. Patient History: Menarche at age 10. First Full-Term at age 26. Premenopausal. Hormonal Contraceptives, from age 18 until age 25. Maternal grandmother had breast cancer, age 65. Risk Values: Elizabeth 5 year model risk: 0.9%. NCI Lifetime model risk: 11.7%. Technique: Method: Targeted. Prior Study Comparison: 10/18/2021 Bilateral Screening Mammogram, [facility]. 01/01/2023 Bilateral MG 3D screening mammo w/cad, [facility]. 04/22/2024 Bilateral MG 3D screening mammo w/cad, [facility]. Findings: The lower outer quadrant of the left breast, the axilla of the left breast and the retroareolar of the left breast were scanned. Located 9 cm from nipple 4:00 position is a hypoechoic oval area with a septation. There is some posterior wall enhancement. Findings can be compatible with complex cyst. Overall Assessment: Probably benign, BI-RAD 3 Management: Diagnostic Breast Ultrasound of the left breast in 3 months. A clinical breast exam by your physician is recommended on an annual basis and results should be correlated with mammographic findings. This exam should not preclude additional follow-up of suspicious palpable abnormalities. Results were given to the patient verbally at the time of exam. Electronically signed and approved by: Brian Stevens D.O. Radiologis
== END | disposition home or self-care (01) ==
LOC: RADMAMWWP 07:07
PROVIDERS: ATTEND Obstetrics & Gynecology
DX: R92.332 Mammographic heterogeneous density, left breast (principal); R92.8 Other abnormal and inconclusive findings on diagnostic imaging of breast; Z80.3 Family history of malignant neoplasm of breast
CPT/HCPCS: 77061; 77065

== ENCOUNTER → 2024-05-31 | Outpatient (CLI) | payer MEDICAID | END | disposition home or self-care (01) | LOC: LABWHC1 15:30 | PROVIDERS: ATTEND Obstetrics & Gynecology | DX: Z01.812 Encounter for preprocedural laboratory examination (principal) | CPT/HCPCS: 86850; 86900; 86901; 87077; 87086; 87186 ==

== ENCOUNTER 2024-06-09 09:19 | Observation (INO) | payer MEDICAID ==
[~2024-06-09 09:19] MED LIST changes: +BUPIVACAINE (PF) 0.25% 30 ML VIAL ONE; +DEXAMETHASONE SOD PHOSPHATE 4 MG/ML 1 ML VIAL ONE; +GLYCOPYRROLATE 0.2 MG/ML 2 ML VIAL ONE; +LACTATED RINGERS 1,000 ML BAG ONE; +LIDOCAINE 1% INJ 10MG/ML (20 ML MDV) ONE; +MIDAZOLAM 2 MG/2 ML VIAL ONE; +NEOSTIGMINE 1 MG/ML 10 ML VIAL ONE; +ONDANSETRON 4 MG/2 ML VIAL ONE; +PROPOFOL 10 MG/ML 20 ML VIAL IV ONE; -Pre Op ABX Message 1 EACH MISC MISCELLANE ONE; +ROCURONIUM 10 MG/ML (5 ML VIAL) IV ONE; +SCOPOLAMINE 1 MG/72 HR PATCH TRANSDERM ONE; +SUCCINYLCHOLINE CHLORIDE 200 MG/10 ML VIAL IV ONE; +SUGAMMADEX SODIUM 200 MG/2 ML SDV IV ONE; +fentaNYL (PF) 50 MCG/ML 2 ML AMP ONE
[2024-06-09] MEDS ORDERED: HYDROmorphone 0.5 MG/0.5 ML SYRINGE ONE (09:37)
[2024-06-09] MEDS ORDERED: KETOROLAC 15 MG/ML 1 ML VIAL ONE (09:38)
[2024-06-09] MEDS ORDERED: ONDANSETRON 4 MG/2 ML VIAL ONE ×3 (09:55→14:48)
[2024-06-09] MEDS ORDERED: droPERidol 5 MG/2 ML VIAL ONE (10:17)
[2024-06-10] MEDS ORDERED: SENNOSIDES-DOCUSATE SODIUM 1 EACH TAB PO ONE ×2 (08:36)
[2024-06-10] MEDS ORDERED: diphenhydrAMINE 50 MG/ML 1 ML VIAL ONE ×2 (08:36)
[2024-06-10] MEDS ORDERED: IBUPROFEN 600 MG TAB PO ONE ×2 (08:37)
--- NOTE | 2024-06-10 15:58 | OP ---
OPERATIVE REPORT DATE OF SERVICE : 06/09/2024 PREOPERATIVE DIAGNOSES: 1. Abnormal uterine bleeding. 2. Failed endometrial ablation. POSTOPERATIVE DIAGNOSES: 1. Abnormal uterine bleeding. 2. Failed endometrial ablation. 3. Simple right ovarian cysts. PROCEDURES PERFORMED: Robotic-assisted total laparoscopic hysterectomy, bilateral salpingectomy, right ovarian cystectomies, and cystoscopy. IMPLANTS: None. ANESTHESIA: GETA. ESTIMATED BLOOD LOSS: 25 mL. IV FLUIDS: 700 mL. URINE OUTPUT: 500 mL. PATHOLOGY: Uterus, cervix, bilateral fallopian tubes, right ovarian cyst hung. CONDITION: Stable. DISPOSITION: Floor. INDICATIONS FOR PROCEDURE: Ms. Mukherjee is a 43-year-old G2, P2 with abnormal bleeding that persisted after endometrial ablation. She presents today for robotic hysterectomy, bilateral salpingectomy, and cystoscopy. The risks, benefits, and alternatives to surgery were discussed with the patient including bleeding, infection, damage to surrounding structures, including bladder, bowel, and ureters as well as postoperative VTE. The patient understands these risks and desires to proceed with surgery as discussed. All questions answered. 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 Ovaries are otherwise unremarkable. There is a small adhesion from omentum to the anterior abdominal wall. The pelvis is otherwise unremarkable. DESCRIPTION OF PROCEDURE: Prior to the beginning of the procedure, the team paused to verify the patient's identity. The procedure to be performed was reviewed, and the correct side and site were discussed. The patient was positioned appropriately. All relevant images and results were properly labelled and displayed. We addressed antibiotic prophylaxis and fluids for irrigation as applicable to the patient. Any safety precautions were addressed. The patient was taken to the operating room, where general anesthesia was induced without difficulty. She was then positioned in the dorsal lithotomy position with Tyshawn stirrups. Positioning included placing her arms at her sides. After the patient was placed in what was felt to be a neurologically safe position, deep Trendelenburg position was tested prior to the operative procedure to ensure that she would not move on the operating table. The patient was then prepped and draped in the normal sterile fashion for combined abdominal-vaginal surgery. A Valdez catheter was placed in the bladder for continuous drainage. The uterus was sounded to 8 cm. A VCare manipulator was placed in the uterus for manipulation. Attention then was placed to the abdomen. The normal length Veress needle was introduced into the abdominal cavity while tenting the abdominal wall. Low pressure was noted, confirming appropriate placement. The abdomen was then insufflated to 15 mmHg for the remainder of the case. The Veress needle was removed and an 8 mm robotic port was placed at the umbilical site under direct laparoscopic visualization, and there was no evidence of injury from the trocar placement. Visualization of the intraabdominal cavity showed normal pelvic anatomy without evidence of adhesions. The port sites for the remainder of the case were then measured out and placed under direct visualization. On the left side, one 8 mm robotic assist port and one 10 mm assist port were placed. On the right side, one 8 mm robotic port was placed. The da Peggy robot was then brought to the operative field in a lateral docking style to the right of the patient, and the robot was docked to the ports. All robotic instruments were brought into the pelvis under direct visualization with monopolar scissors in arm #3 and a vessel sealer in arm #1. Bilateral ureters were visualized prior to starting the surgery. The right fallopian tube was cauterized and cut sequentially to the level of the uterine cornua. The right uteroovarian ligament was then cauterized and cut. The right round ligament was cauterized and cut. The broad ligament was opened and the bladder flap was created. This was repeated on the left side with a portion of the left fallopian tube being removed as well. Two right cystectomies were performed with a monopolar scissors, and the cyst wall was removed. The peritoneum of the bilateral broad ligaments was then taken down with monopolar cautery, skeletonizing the uterine arteries bilaterally. During the course of this dissection, the anterior leaf of the broad ligament was also taken down over the anterior aspect of the uterus and the cervix to create a bladder flap. The bladder flap was then dissected off the cervix and the upper vagina with the monopolar scissors and gentle blunt dissection. The bilateral uterine arteries were then cauterized and divided at the level of the internal cervical os. The monopolar cautery was used to incise the vaginal cuff. The uterus, along with the cervix, and fallopian tubes were removed vaginally. The vaginal cuff was closed with 0 Stratafix sutures. Excellent hemostasis was noted at the end of this portion of the procedure. The robot was undocked at this time. A 30-degree cystoscope was used to visualize the bladder, which had no trauma from surgery and no sutures present. There was good efflux noted from both ureteric orifices. The remainder of the ports were removed, and the gas was allowed to escape. All incisions were infiltrated with 0.25% plain local anesthesia and closed with 4-0 Monocryl and Steri-Strips. Hemostasis was noted to be excellent throughout. Final sponge, instrument, and needle counts were noted to be correct. The patient was moved back to the preoperative holding area in a stable condition, having tolerated the procedure well. A physician medical or surgical instrument maker was utilized for the entire procedure due to the need for tissue retraction, dissection of vital structures, prevention and management of blood loss, and reduction in overall operative and anesthesia time as is the standard of care. MMODL / IJN: [id number] /
[2024-06-10] MEDS ORDERED: lisinopriL 10 MG TAB ONE (16:00)
[2024-06-10] MEDS ORDERED: LACTATED RINGERS 1,000 ML BAG ONE (16:00)
== END 2024-06-10 12:00 | disposition home or self-care (01) ==
LOC: OR 09:19 → 4FBP 10:45 → OR 10:45
PROVIDERS: ADMIT Obstetrics & Gynecology; ATTEND Obstetrics & Gynecology
DX: N70.01 Acute salpingitis (principal); N70.11 Chronic salpingitis; N72 Inflammatory disease of cervix uteri; N93.9 Abnormal uterine and vaginal bleeding, unspecified; N87.9 Dysplasia of cervix uteri, unspecified; N94.6 Dysmenorrhea, unspecified; I10 Essential (primary) hypertension; N83.201 Unspecified ovarian cyst, right side; Z79.899 Other long term (current) drug therapy; Z88.8 Allergy status to other drugs, medicaments and biological substances; Z98.51 Tubal ligation status
CPT/HCPCS: 58552; 58662; S2900; 81025; 86850; 86900; 86901; 88307

== ENCOUNTER → 2024-06-15 | Outpatient (CLI) | payer MEDICAID ==
[2024-06-15 15:11] LABS: HCT 39.7 % (37.2-46.3); HGB 12.8 g/dL (12.0-15.0); MCH 29.4 pg (27.0-32.0); MCHC 32.2 g/dL (32.0-37.0); MCV 91.3 FL (80.0-97.0); Mean Platelet Volume 10.4 FL (9.5-12.2); NRBC Per 100 WBC 0 X 10*3/uL (0.00-0.01); Platelet Count 361 X 10*3/uL (140-440); RBC 4.35 X 10*6/uL (4.10-5.20); RDW 12.5 % (11.5-14.5)
[2024-06-15 16:02] LABS: BUN/Creat Ratio 12.14 Ratio (12.00-20.00); Blood Urea Nitrogen 8.5 mg/dL (9.0-27.0); Carbon Dioxide 23.4 mmol/L (21.6-31.8); Chloride 103 mmol/L (96-109); Chol/HDL Ratio 7.85 Ratio; Glucose 107 mg/dL (70-110); LDL Cholesterol,Calculated 232.8 mg/dL (0.0-131.0); Potassium 4.5 mmol/L (3.5-5.5); Sodium 139 mmol/L (135-145)
[2024-06-15 16:03] LABS: ALT 31 U/L (8-44); AST 19 U/L (13-35); Albumin 4.6 g/dL (3.8-4.9); Albumin/Globulin Ratio 1.77 Ratio (1.60-3.17); Alkaline Phosphatase 76 U/L (41-126); Calcium 9.4 mg/dL (8.7-10.3); Globulin 2.6 g/dL (1.6-3.3); Total Bilirubin 0.3 mg/dL (0.3-1.2); Total Protein 7.2 g/dL (6.2-8.2)
== END | disposition home or self-care (01) ==
LOC: LABWHC1 08:31
PROVIDERS: ATTEND Family Medicine
DX: I10 Essential (primary) hypertension (principal); E78.2 Mixed hyperlipidemia
CPT/HCPCS: 36415; 80053; 80061; 85027

== ENCOUNTER → 2024-08-01 | Outpatient (CLI) | payer MEDICAID ==
--- NOTE | 2024-08-01 11:47 | USB ---
Reason for Exam: Follow-up at short interval from prior study. Patient History: Menarche at age 10. First Full-Term at age 26. Premenopausal. Hormonal Contraceptives, from age 18 until age 25. Maternal grandmother had breast cancer, age 65. Risk Values: Elizabeth 5 year model risk: 0.9%. NCI Lifetime model risk: 11.7%. Technique: Method: Targeted. Prior Study Comparison: 01/01/2023 Bilateral MG 3D screening mammo w/cad, [facility]. 04/22/2024 Bilateral MG 3D screening mammo w/cad, [facility]. 04/28/2024 Left MG 3D work up w/cad LT, [facility]. Findings: The lower outer quadrant of the left breast, the axilla of the left breast and the retroareolar of the left breast were scanned. Technique utilized:US breast limited LT Image; Ultrasound imaging of: All 4 quadrants, the retroareolar region and axilla. Similar given differences in measuring technique either bilobed cyst with thin septation versus 2 adjacent cysts at 4:00 9 cm from nipple. No suspicious solid mass. In totality measuring 2.0 x 1.9 x 0.8 cm with thin septation previously measuring 2.1 x 1.9 x 0.8 cm given differences in measuring technique. Overall Assessment: Benign, BI-RAD 2 Management: Screening Mammogram of both breasts in 1 year. Bilobed appearing anechoic cysts versus single cyst with thin septation. No suspicious features. A clinical breast exam by your physician is recommended on an annual basis and results should be correlated with mammographic findings. This exam should not preclude additional follow-up of suspicious palpable abnormalities. Results were given to the patient verbally at the time of exam. [facility], , 08/01/2024 11:44 AM. Electronically signed and approved by: Mandeep James DO
== END | disposition home or self-care (01) ==
LOC: RADUSWWP 10:30
PROVIDERS: ATTEND Obstetrics & Gynecology
DX: R92.8 Other abnormal and inconclusive findings on diagnostic imaging of breast